=== PATIENT | male | born 1930 | race Caucasian/White ===

== ENCOUNTER 2016-10-26 10:21 | Inpatient (IN) | payer MEDICARE, OTHER ==
[~2016-10-26 10:21] MED LIST: COUMADIN2 M1 PO; COUMADIN4 M1 PO; DEMADEX20 M1 PO; FINASTERIDE5 M2 PO; IPRAT-ALBUT 0.5-3 ML; JUICE PLUS PO; LOVENOX120 MG/0.1 SC; LOVENOX40 MG/0.1 SC; MIRALAX17 G2 PO; MULTAQ400 M1 PO; MYOFLEX60 G1 TP; NORCO 5-325 TA1 EACH PO; PROPRANOLOL HC120 M1 PO; SENNA-S TABLET1 EAC3 PO; TYLENOL325 M2 PO; ULTRAM50 M1 PO
[2016-10-26 11:31] LABS: INR 1.3 INR (0.9-1.1)
[2016-10-26 20:46] LABS: BASO % 0.1 % (0-2); HCT-HEMATOCRIT 37.2 % (36.0-53.5); HGB-HEMOGLOBIN 12.2 gm/dl (13.5-17.0); IMMATURE GRANULOCYTES ABSOLUTE 0.04 tho/cmm (0-0.03); IMMATURE GRANULOCYTES PERCENT 0.3 % (0-0.3); LYMPH % 4.4 % (20-45); LYMPH ABSOLUTE COUNT 0.5 tho/cmm (0.8-4.5); MCH (MEAN CORPUSCULAR HGB) 29.2 pg (28.0-32.0); MCHC MEAN CORPUSCULAR HGB CONC 32.8 % (32.0-36.0); MEAN PLATELET VOLUME 9.1 cmc (9.4-12.4); MONO % 1.5 % (0-12); MONOCYTE ABSOLUTE COUNT 0.2 tho/cmm (0.0-1.2); NEUTROPHIL ABSOLUTE COUNT 10.9 tho/cmm (1.6-8.0); NEUTROPHIL-AUTOMATED 10.9 tho/cmm (1.6-8.0); NEUTROPHILS % 93.7 % (40-80); PLATELET COUNT 147 tho/cmm (150-450); RED BLOOD COUNT 4.18 mil/cmm (4.40-5.70); RED CELL DISTRIBUTION WIDTH 14.9 % (12.4-16.4); WHITE BLOOD COUNT 11.6 tho/cmm (4.0-10.0)
[2016-10-26 20:59] LABS: ALB/GLOB RATIO 0.6 (0.8-2.0); ALBUMIN 2.3 g/dl (3.5-5.0); ALKALINE PHOSPHATASE 98 U/L (33-138); ALT/SGPT 21 U/L (12-78); ANION GAP 11 mmol/L (0-20); AST/SGOT 26 U/L (10-40); BILIRUBIN,TOTAL 1.2 mg/dl (0.0-1.5); BLOOD UREA NITROGEN 14 mg/dl (6-24); CARBON DIOXIDE-VENOUS 31 mmol/L (22-32); CHLORIDE 100 mmol/l (96-110); CREATININE 0.85 mg/dl (0.60-1.30); GLUCOSE 173 mg/dL (70-110); POTASSIUM 3.8 mmol/L (3.7-5.1); SODIUM 138 mmol/L (135-145); eGFR VALUE FOR BLACK >90 mL/Min
[2016-10-27 04:49] LABS: BASO % 0.1 % (0-2); HCT-HEMATOCRIT 37.4 % (36.0-53.5); HGB-HEMOGLOBIN 12.4 gm/dl (13.5-17.0); IMMATURE GRANULOCYTES ABSOLUTE 0.05 tho/cmm (0-0.03); IMMATURE GRANULOCYTES PERCENT 0.3 % (0-0.3); LYMPH % 2.3 % (20-45); LYMPH ABSOLUTE COUNT 0.4 tho/cmm (0.8-4.5); MCH (MEAN CORPUSCULAR HGB) 29.5 pg (28.0-32.0); MCHC MEAN CORPUSCULAR HGB CONC 33.2 % (32.0-36.0); MCV (MEAN CELL VOLUME) 88.8 fl (82.0-96.0); MEAN PLATELET VOLUME 9.5 cmc (9.4-12.4); MONO % 5.3 % (0-12); MONOCYTE ABSOLUTE COUNT 0.9 tho/cmm (0.0-1.2); PLATELET COUNT 168 tho/cmm (150-450); RED BLOOD COUNT 4.21 mil/cmm (4.40-5.70); RED CELL DISTRIBUTION WIDTH 14.9 % (12.4-16.4); WHITE BLOOD COUNT 16.3 tho/cmm (4.0-10.0)
[2016-10-27 04:50] LABS: ABG CO2 ARTERIAL 29 mmol/L (21-27); ARTERIAL BLD GAS O2 SATURATION 92 % (95-98); ARTERIAL BLOOD GAS PCO2 41 mmHg (32-45); ARTERIAL PO2 63 mmHg (70-100); BICARBONATE 28 mmol/L (21-28); BLOOD GAS BASE EXCESS 4 mM/L (-/+3); PH 7.44 Units (7.35-7.45)
[2016-10-27 04:51] LABS: ANION GAP 12 mmol/L (0-20); BLOOD UREA NITROGEN 15 mg/dl (6-24); CALCIUM 9.3 mg/dl (8.5-10.5); CARBON DIOXIDE-VENOUS 30 mmol/L (22-32); CHLORIDE 100 mmol/l (96-110); CREATININE 0.92 mg/dl (0.60-1.30); GLUCOSE 165 mg/dL (70-110); POTASSIUM 4.3 mmol/L (3.7-5.1); SODIUM 138 mmol/L (135-145); eGFR VALUE FOR BLACK 86 mL/Min
[2016-10-28 05:32] LABS: BASO % 0.1 % (0-2); EOS % 0.1 % (0-7); HCT-HEMATOCRIT 34.1 % (36.0-53.5); IMMATURE GRANULOCYTES ABSOLUTE 0.07 tho/cmm (0-0.03); IMMATURE GRANULOCYTES PERCENT 0.4 % (0-0.3); LYMPH % 3.2 % (20-45); LYMPH ABSOLUTE COUNT 0.6 tho/cmm (0.8-4.5); MCH (MEAN CORPUSCULAR HGB) 28.7 pg (28.0-32.0); MCHC MEAN CORPUSCULAR HGB CONC 32.3 % (32.0-36.0); MEAN PLATELET VOLUME 9.4 cmc (9.4-12.4); MONO % 7.4 % (0-12); MONOCYTE ABSOLUTE COUNT 1.4 tho/cmm (0.0-1.2); NEUTROPHIL ABSOLUTE COUNT 16.6 tho/cmm (1.6-8.0); NEUTROPHIL-AUTOMATED 16.6 tho/cmm (1.6-8.0); NEUTROPHILS % 88.8 % (40-80); PLATELET COUNT 143 tho/cmm (150-450); RED BLOOD COUNT 3.83 mil/cmm (4.40-5.70); RED CELL DISTRIBUTION WIDTH 15.6 % (12.4-16.4); WHITE BLOOD COUNT 18.6 tho/cmm (4.0-10.0)
[2016-10-28 05:43] LABS: ALB/GLOB RATIO 0.6 (0.8-2.0); ALKALINE PHOSPHATASE 89 U/L (33-138); ALT/SGPT 16 U/L (12-78); ANION GAP 10 mmol/L (0-20); AST/SGOT 29 U/L (10-40); BILIRUBIN,TOTAL 0.7 mg/dl (0.0-1.5); CALCIUM 8.8 mg/dl (8.5-10.5); CARBON DIOXIDE-VENOUS 34 mmol/L (22-32); CHLORIDE 98 mmol/l (96-110); GLUCOSE 152 mg/dL (70-110); POTASSIUM 4.7 mmol/L (3.7-5.1); SODIUM 137 mmol/L (135-145); eGFR VALUE FOR BLACK 70 mL/Min
[2016-10-28 05:46] LABS: BLOOD UREA NITROGEN 29 mg/dl (6-24)
[2016-10-29 06:32] LABS: BASO % 0.2 % (0-2); EOS % 0.6 % (0-7); EOSINOPHIL ABSOLUTE COUNT 0.1 tho/cmm (0.0-0.7); HGB-HEMOGLOBIN 10.6 gm/dl (13.5-17.0); IMMATURE GRANULOCYTES ABSOLUTE 0.06 tho/cmm (0-0.03); IMMATURE GRANULOCYTES PERCENT 0.5 % (0-0.3); LYMPH % 9.2 % (20-45); LYMPH ABSOLUTE COUNT 1.2 tho/cmm (0.8-4.5); MCH (MEAN CORPUSCULAR HGB) 28.9 pg (28.0-32.0); MCHC MEAN CORPUSCULAR HGB CONC 32.1 % (32.0-36.0); MCV (MEAN CELL VOLUME) 89.9 fl (82.0-96.0); MEAN PLATELET VOLUME 10.2 cmc (9.4-12.4); MONO % 9.1 % (0-12); MONOCYTE ABSOLUTE COUNT 1.1 tho/cmm (0.0-1.2); NEUTROPHIL ABSOLUTE COUNT 10.1 tho/cmm (1.6-8.0); NEUTROPHIL-AUTOMATED 10.1 tho/cmm (1.6-8.0); NEUTROPHILS % 80.4 % (40-80); PLATELET COUNT 123 tho/cmm (150-450); RED BLOOD COUNT 3.67 mil/cmm (4.40-5.70); RED CELL DISTRIBUTION WIDTH 15.5 % (12.4-16.4); WHITE BLOOD COUNT 12.5 tho/cmm (4.0-10.0)
[2016-10-29 06:42] LABS: ANION GAP 8 mmol/L (0-20); BLOOD UREA NITROGEN 29 mg/dl (6-24); CALCIUM 8.2 mg/dl (8.5-10.5); CARBON DIOXIDE-VENOUS 35 mmol/L (22-32); CHLORIDE 100 mmol/l (96-110); CREATININE 0.84 mg/dl (0.60-1.30); GLUCOSE 142 mg/dL (70-110); POTASSIUM 4.4 mmol/L (3.7-5.1); SODIUM 139 mmol/L (135-145); eGFR VALUE FOR BLACK >90 mL/Min
[2016-10-29] MEDS ORDERED: ROBAXIN-750750 M1 PO (10:16)
[2016-10-29] MEDS ORDERED: SENOKOT-S TABL1 EACH PO (10:17)
[2016-10-29] MEDS ORDERED: KEFLEX500 M4 PO (10:17)
[2016-10-29] MEDS ORDERED: NORCO 5-325 TA1 EACH PO (10:19)
[2016-10-29] MEDS ORDERED: GLUCOTROL5 M1 PO (12:46)
== END 2016-10-29 13:04 | DRG 460 ==
LOC: SHSC 10:21 → ORE 14:07 → PACU 16:46 → 5EC 19:00 → 5EB 10-27 06:05
PROVIDERS: Anesthesiology; Internal Medicine; ADMIT Neurological Surgery
PROC: 0SS004Z Reposition Lumbar Vertebral Joint with Internal Fixation Device, Open Approach (ICD-10-PCS; principal; 2016-10-26)
PROC: 0SG1070 Fusion of 2 or more Lumbar Vertebral Joints with Autologous Tissue Substitute, Anterior Approach, Anterior Column, Open Approach (ICD-10-PCS; 2016-10-26)
PROC: 0QB20ZZ Excision of Right Pelvic Bone, Open Approach (ICD-10-PCS; 2016-10-26)
DX: S32.022A Unstable burst fracture of second lumbar vertebra, initial encounter for closed fracture (principal); I10 Essential (primary) hypertension; E78.5 Hyperlipidemia, unspecified; M81.0 Age-related osteoporosis without current pathological fracture; D32.1 Benign neoplasm of spinal meninges; X58.XXXA Exposure to other specified factors, initial encounter
CPT/HCPCS: J0690; J1815; J2800; J3010; J3370; J7040

== ENCOUNTER 2016-11-09 07:39 | Inpatient (IN) | payer MEDICARE, OTHER ==
[~2016-11-09 07:39] MED LIST changes: +GLUCOTROL5 M1 PO; +KEFLEX500 M4 PO; +ROBAXIN-750750 M1 PO; +SENOKOT-S TABL1 EACH PO
[2016-11-09 07:51] LABS: BASO % 0.4 % (0-2); EOS % 1.3 % (0-7); EOSINOPHIL ABSOLUTE COUNT 0.1 tho/cmm (0.0-0.7); HCT-HEMATOCRIT 34.1 % (36.0-53.5); HGB-HEMOGLOBIN 11.1 gm/dl (13.5-17.0); LYMPH % 10.9 % (20-45); MCH (MEAN CORPUSCULAR HGB) 29.6 pg (28.0-32.0); MCHC MEAN CORPUSCULAR HGB CONC 32.6 % (32.0-36.0); MCV (MEAN CELL VOLUME) 90.9 fl (82.0-96.0); MEAN PLATELET VOLUME 9.5 cmc (9.4-12.4); MONO % 10.8 % (0-12); NEUTROPHIL ABSOLUTE COUNT 6.9 tho/cmm (1.6-8.0); NEUTROPHIL-AUTOMATED 6.9 tho/cmm (1.6-8.0); NEUTROPHILS % 76.6 % (40-80); PLATELET COUNT 149 tho/cmm (150-450); RED BLOOD COUNT 3.75 mil/cmm (4.40-5.70); RED CELL DISTRIBUTION WIDTH 16.4 % (12.4-16.4)
[2016-11-09] MEDS ORDERED: CULTURELLE1 EAC1 PO (07:51)
[2016-11-09] MEDS ORDERED: COUMADIN3 M1 PO (07:53)
[2016-11-09 07:58] LABS: INR 1.3 INR (0.9-1.1); PROTHROMBIN TIME 15.1 SECONDS (9.0-13.6)
[2016-11-09] MEDS ORDERED: CYCLOBENZAPRINE10 M1 PO (08:06)
[2016-11-09] MEDS ORDERED: BOOST PO (08:08)
[2016-11-09 08:09] LABS: ALB/GLOB RATIO 0.6 (0.8-2.0); ALBUMIN 2.3 g/dl (3.5-5.0); ALKALINE PHOSPHATASE 120 U/L (33-138); ALT/SGPT 16 U/L (12-78); AST/SGOT 23 U/L (10-40); BILIRUBIN,TOTAL 1.1 mg/dl (0.0-1.5); BLOOD UREA NITROGEN 17 mg/dl (6-24); CALCIUM 8.6 mg/dl (8.5-10.5)
[2016-11-09 08:12] LABS: CARBON DIOXIDE-VENOUS 32 mmol/L (21-33); POTASSIUM 3.2 mmol/L (3.5-5.3); SODIUM 140 mmol/L (135-146)
[2016-11-09 08:13] LABS: CREATININE 0.86 mg/dl (0.67-1.17); GLUCOSE 117 mg/dl (65-120); eGFR VALUE FOR BLACK >90 mL/Min
[2016-11-09 08:14] LABS: ANION GAP 5 mmol/L (0-20); CHLORIDE 106 mmol/l (96-110)
[2016-11-09 09:32] LABS: ESR-ERYTHROCYTE SED RATE 28 mm/hr (0-20)
[2016-11-10] MEDS ORDERED: GLUCOTROL5 M1 PO (03:14)
== END 2016-11-11 12:30 | disposition home health service (06) | DRG 66 ==
LOC: EDMED 07:39 → EMR2 09:38 → 5EB 15:10
PROVIDERS: Emergency Medicine; ADMIT Internal Medicine
DX: I62.01 Nontraumatic acute subdural hemorrhage (principal); E11.40 Type 2 diabetes mellitus with diabetic neuropathy, unspecified; I27.2 Other secondary pulmonary hypertension; S03.02XA Dislocation of jaw, left side, initial encounter; Z79.84 Long term (current) use of oral hypoglycemic drugs; E78.5 Hyperlipidemia, unspecified; E87.6 Hypokalemia; Z95.0 Presence of cardiac pacemaker; N40.0 Benign prostatic hyperplasia without lower urinary tract symptoms; I48.2 Chronic atrial fibrillation; Z79.01 Long term (current) use of anticoagulants; Z98.1 Arthrodesis status; E04.1 Nontoxic single thyroid nodule; I65.23 Occlusion and stenosis of bilateral carotid arteries; Z87.891 Personal history of nicotine dependence
CPT/HCPCS: C8929; G8987-GO-CK; G8988-GO-CJ; G8989-GO-CK; G8996-GN-CK; G8997-GN-CK; G8998-GN-CK; J1815; J3480; J7030; Q9967